=== PATIENT | female | born 1980 | race Native Hawaiian/Other Pacific Islander ===

== ENCOUNTER 2016-08-10 20:45 | Emergency (ER) | payer OTHER ==
[~2016-08-10] VITALS: Ht 154.9 cm; Wt 58.5 kg
== END 2016-08-10 21:55 | disposition home or self-care (01) ==
LOC: ED 20:45
DX: T78.40XA Allergy, unspecified, initial encounter (principal); R22.0 Localized swelling, mass and lump, head
CPT/HCPCS: 96372; 99283; J1100

== ENCOUNTER 2016-08-15 20:19 | Emergency (ER) | payer OTHER ==
[~2016-08-15] VITALS: Ht 154.9 cm; Wt 58.1 kg
== END 2016-08-15 21:06 | disposition home or self-care (01) ==
LOC: ED 20:19
DX: T78.40XA Allergy, unspecified, initial encounter (principal)
CPT/HCPCS: 99282; J1100

== ENCOUNTER 2016-09-18 00:39 | Emergency (ER) | payer OTHER ==
[~2016-09-18] VITALS: Ht 154.9 cm; Wt 58.1 kg
== END 2016-09-18 01:30 | disposition home or self-care (01) ==
LOC: ED 00:39
DX: J40 Bronchitis, not specified as acute or chronic (principal)
CPT/HCPCS: 99283

== ENCOUNTER 2019-03-11 14:49 | Outpatient (CLI) | payer OTHER | END 2019-03-11 23:59 | disposition home or self-care (01) | LOC: RAD 14:49 | DX: R31.29 Other microscopic hematuria (principal); Z87.442 Personal history of urinary calculi ==

== ENCOUNTER 2019-03-17 11:17 | Outpatient (CLI) | payer OTHER | END 2019-03-17 23:59 | LOC: MAMMO 11:17 | DX: Z12.31 Encounter for screening mammogram for malignant neoplasm of breast (principal) ==